=== PATIENT | female | born 1970 | race Caucasian/White ===

== ENCOUNTER 2018-08-21 14:25 | Emergency (ER) | payer OTHER ==
[2018-08-21 15:03] VITALS: TEMP 98
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
[2018-08-21 17:49] VITALS: BP 124/71; PULSE 80; RESP 18; O2SAT 96
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
== END 2018-08-21 18:23 | disposition home or self-care (01) ==
LOC: ED 14:25
DX: S39.012A Strain of muscle, fascia and tendon of lower back, initial encounter (principal); V49.9XXA Car occupant (driver) (passenger) injured in unspecified traffic accident, initial encounter
CPT/HCPCS: 72131; 72220; 96372; 99284; J1885